=== PATIENT | female | born 1950 | race Caucasian/White ===

== ENCOUNTER 2017-08-16 08:53 | Day surgery (SDC) | payer OTHER ==
[~2017-08-16] VITALS: Ht 157.5 cm; Wt 85.8 kg
[~2017-08-16 08:53] MED LIST: CO Q10100 MG PO; FISH OIL 1,2001 EAC1 PO; HAWTHORN150 MG PO; LEVSOD100 PO; LOSARTAN POTAS100 MG PO; LOVA40; Magnesium500 M1 PO; Multiple Vitam1 EAC1 PO; NEBI5 PO; Sm Glucosamine1 EACH PO; VITAMIN D32000 UNIT PO; Vitamin B-122000 MCG PO
[2017-09-13] MEDS ORDERED: NEBI5 (12:48)
[2017-09-20] MEDS ORDERED: FISH OIL 1,2001 EAC3 PO (10:47)
[2017-10-15] MEDS ORDERED: LOVA40 PO (14:08)
== END 2017-08-16 11:10 | disposition home or self-care (01) ==
LOC: ORSCSDS 08:53
PROVIDERS: Orthopaedic Surgery
PROC: 01N54ZZ Release Median Nerve, Percutaneous Endoscopic Approach (ICD-10-PCS; principal; 2017-08-16 10:00)
DX: G56.01 Carpal tunnel syndrome, right upper limb (principal); I10 Essential (primary) hypertension; E03.9 Hypothyroidism, unspecified; E28.2 Polycystic ovarian syndrome; Z79.899 Other long term (current) drug therapy
CPT/HCPCS: J0171; J0690; J2250; J7120

== ENCOUNTER 2017-09-20 10:33 | Day surgery (SDC) | payer OTHER ==
[~2017-09-20] VITALS: Ht 157.5 cm; Wt 85.4 kg
[~2017-09-20 10:33] MED LIST changes: +Multiple Vitam1 EAC1; -Multiple Vitam1 EAC1 PO; +NEBI5
[2017-09-20] MEDS ORDERED: FISH OIL 1,2001 EAC3 (10:47)
== END 2017-09-20 11:53 | disposition home or self-care (01) ==
LOC: ORSCSDS 10:33
PROVIDERS: Orthopaedic Surgery
PROC: 01N54ZZ Release Median Nerve, Percutaneous Endoscopic Approach (ICD-10-PCS; principal; 2017-09-20 12:00)
DX: G56.02 Carpal tunnel syndrome, left upper limb (principal); I10 Essential (primary) hypertension; G47.33 Obstructive sleep apnea (adult) (pediatric); K21.9 Gastro-esophageal reflux disease without esophagitis; E78.00 Pure hypercholesterolemia, unspecified; E66.9 Obesity, unspecified; Z68.34 Body mass index [BMI] 34.0-34.9, adult; Z79.899 Other long term (current) drug therapy
CPT/HCPCS: J0171; J0690; J2250; J3010; J7120

== ENCOUNTER 2017-10-17 07:16 | Day surgery (SDC) | payer OTHER ==
[~2017-10-17] VITALS: Ht 157.5 cm; Wt 85.3 kg
[~2017-10-17 07:16] MED LIST changes: +FISH OIL 1,2001 EAC3 PO; +LOVA40 PO; -Multiple Vitam1 EAC1; +Multiple Vitam1 EAC1 PO
[2017-10-17] MEDS ORDERED: OMEPRAZOLE MAGN20 MG PO (08:02)
== END 2017-10-17 22:50 | disposition home or self-care (01) ==
LOC: ORSCMMR 07:16 → ORD 08:45 → ORSCMMR 08:45
PROVIDERS: Surgery
PROC: 0WUF0JZ Supplement Abdominal Wall with Synthetic Substitute, Open Approach (ICD-10-PCS; principal; 2017-10-17 08:45)
DX: K42.9 Umbilical hernia without obstruction or gangrene (principal); I10 Essential (primary) hypertension; G47.33 Obstructive sleep apnea (adult) (pediatric); K21.9 Gastro-esophageal reflux disease without esophagitis; Z79.899 Other long term (current) drug therapy
CPT/HCPCS: 82947; C1781; J0330; J1100; J2250; J2310; J2405; J2550; J2710; J3010; J7120